=== PATIENT | female | born 1935 | race Two or more races ===

== ENCOUNTER 2020-07-25 12:18 | Inpatient (IN) | payer OTHER ==
[~2020-07-25] VITALS: Ht 162.6 cm; Wt 86.2 kg
[2020-07-25] MEDS ORDERED: COZAAR50 MG (12:35)
[2020-07-25] MEDS ORDERED: SYNTHROID100 MCG (12:35)
--- NOTE | 2020-07-25 12:40 | NUR ---
PACIENTE ALERTA Y ORIENTADA EN LAS RAULITO ESFERAS. PACIENTE PRESENTA PITTING EDEMA +3 EN AMBAS EXTREMIDADES INFERIORES. SE COLOCA A PACIENTE EN AREA DE OBSERVACION PARA SER ATENDIDA POR MEDICO EN TURNO.
--- NOTE | 2020-07-25 13:32 | NUR ---
. RENTA EVALUA PTE. RN KELSEY ORIENTA PTE SOBRE MEDICAMENTOS Y AMBIKA DE MUESTRAS REALIZADAS. SE COORDINA ESTUDIO PENDIENTE CON SERVICIO DE MAYE X. SE CANALIZA PTE Y SE MANTIENE PTE BAJO OBSERVACION.
--- NOTE | 2020-07-25 15:18 | NUR ---
SE RECIBE PACIENTE DE TURNO ANTERIOR, ALERTA Y ORIENTADA EN TIEMPO LUGAR Y PERSONA. CON VENOPUNCION PATENTE, RJ DE ERITEMA Y EDEMA, RECIBEIDNO AL MOMENTO TERAPIA DE IVF'S 0.9 NSS 1000ML A 100ML. PENDIENTE LECTURA DE XRAYS Y RESULTADOS DE LABORATORIOS. SE MANTIENE PTE EN OBSERVACION POR CAMBIOS EN SMITH CONDICION. PTE RJ DE DOLOR AL MOMENTO.
--- NOTE | 2020-07-25 17:49 | NUR ---
MRS. TOBIN ADMINISTRA MEDICAMENTO ORDENADO. SE ORIENTA A PACIENTE SOBRE INDICACION DEL MISMO.
[2020-07-26] MEDS ORDERED: ALPRAZOLAM0.25 MG (11:57)
[2020-07-26] MEDS ORDERED: FUROSEMIDE20 MG (11:57)
== END 2020-07-28 03:00 | disposition left against medical advice (07) | DRG 690 ==
LOC: ER 12:18 → SEC-K 19:46 → MEDI 07-26 06:02
PROVIDERS: ADMIT Internal Medicine; ATTEND Internal Medicine
PROC: 3E0F7SF Introduction of Other Gas into Respiratory Tract, Via Natural or Artificial Opening (ICD-10-PCS; principal; 2020-07-25)
PROC: 4A033R1 Measurement of Arterial Saturation, Peripheral, Percutaneous Approach (ICD-10-PCS; 2020-07-25)
DX: N39.0 Urinary tract infection, site not specified (principal); L03.116 Cellulitis of left lower limb; B96.20 Unspecified Escherichia coli [E. coli] as the cause of diseases classified elsewhere; D72.828 Other elevated white blood cell count; I10 Essential (primary) hypertension; I50.9 Heart failure, unspecified; E11.9 Type 2 diabetes mellitus without complications; E03.8 Other specified hypothyroidism; E66.01 Morbid (severe) obesity due to excess calories; R53.1 Weakness; E88.09 Other disorders of plasma-protein metabolism, not elsewhere classified; Z20.822 Contact with and (suspected) exposure to COVID-19

== ENCOUNTER 2022-12-05 22:41 | Emergency (ER) | payer OTHER ==
[~2022-12-05] VITALS: Ht 165.1 cm; Wt 113.4 kg
[~2022-12-05 22:41] MED LIST: ALPRAZOLAM0.25 MG; COZAAR50 MG; FUROSEMIDE20 MG; SYNTHROID100 MCG
[2022-12-06 01:22] LABS: HEMOGLOBIN 14.1 g/dL (12.0-15.00); MEAN CELL VOLUME 93.5 fL (80.00-100.00); MEAN CORPUSCULAR HEMOGLOBIN 30.6 pg (27.00-32.0); MEAN CORPUSCULAR HGB CONC 32.8 g/dl (32.0-36.0); PLATELET COUNT 263 K/uL (150-450); RED CELL DISTRIBUTION WIDTH 13.9 % (11.5-14.5)
[2022-12-06 01:43] LABS: INR 1.03; PARTIAL THROMBOPLASTIN TIME 25.9 SECONDS (22.0-34.0); PROTHROMBIN TIME 10.8 SECONDS (9.0-11.5)
[2022-12-06 01:47] LABS: BILIRUBIN TOTAL 0.23 mg/dL (0.3-1.2); CREATININE SERUM 0.75 mg/dL (0.55-1.02); GFR 73.27; GLOBULINA 4.4 G/DL (2.4-3.5); POTASSIUM 4.07 mEq/L (3.5-5.1); TOTAL PROTEIN 7.4 gm/dL (6.4-8.2)
[2022-12-06 01:54] LABS: URINE APPEARANCE Clear; URINE BILIRRUBIN Negative (NEGATIVE); URINE BLOOD Trace; URINE COLOR Yellow; URINE GLUCOSE Negative (NEGATIVE); URINE LEUKOCYTE Negative; URINE NITRATE Negative; URINE PROTEIN Negative (NEGATIVE); URINE UROBILINOGEN 0.2 E.U./dl
[2022-12-06 02:02] LABS: URINE BACTERIA 66.7 uL (0.0-1933); URINE EPITHELIAL CELLS 7.5 uL (0.0-38.8); URINE RBC 31.8 uL (0.0-20.8); URINE WBC 4.4 uL (0.0-23.2)
== END 2022-12-06 13:27 | disposition home or self-care (01) ==
LOC: ER 22:41
PROVIDERS: General Practice
DX: M79.89 Other specified soft tissue disorders (principal); I10 Essential (primary) hypertension; E03.8 Other specified hypothyroidism; I87.2 Venous insufficiency (chronic) (peripheral); E03.9 Hypothyroidism, unspecified

== ENCOUNTER 2023-06-04 02:05 | Emergency (ER) | payer OTHER ==
[~2023-06-04] VITALS: Ht 165.1 cm; Wt 90.7 kg
--- NOTE | 2023-06-04 02:23 | NUR ---
PACIENTE FEMENINA ALERTA Y ORIENTADA X3, VERBALIZA QUE SIENTE PALPITACIONES, EL PULSO ACELERADO Y PROBLEMAS AL DORMIR.
[2023-06-04] MEDS ORDERED: ASPIRIN 81 MG TAB.CHEW PO STA (03:03)
[2023-06-04] MEDS ORDERED: CLOPIDOGREL BISULFATE 75 MG TABLET PO STA (03:03)
[2023-06-04] MEDS ORDERED: NITROGLYCERIN 0.4 MG/HR PATCH.TD24 TD STA (03:04)
--- NOTE | 2023-06-04 03:48 | NUR ---
PTE REUSA ACOSTARSE EN MAGUI, PREFIERE QUEDARSE EN SILLA DE YING.
--- NOTE | 2023-06-04 03:51 | NUR ---
SE LE ORIENTA A PACIENTE SOBRE LAS ORDENES MEDICAS, REFIERE ENTENDER LAS MISMAS. SE CONECTA A MONITOR CARDIACO Y OXIMETRIA DE PULSO. SE CANALAIZA Y SE LE COLOCA H/L, SE LE ENE LAS MUETRAS, SE LE ADMINISTRAN LOS MEDICAMENTOS JENNIFER LA ORDEN MEDICA.
[2023-06-04 04:08] LABS: HEMATOCRIT 36.5 % (36.0-45.00); MEAN CELL VOLUME 88.7 fL (80.00-100.00); MEAN CORPUSCULAR HEMOGLOBIN 29.1 pg (27.00-32.0); MEAN CORPUSCULAR HGB CONC 32.8 g/dl (32.0-36.0); PLATELET COUNT 345 K/uL (150-450); RED BLOOD COUNT 4.11 M/uL (4.00-6.00); RED CELL DISTRIBUTION WIDTH 14.6 % (11.5-14.5)
[2023-06-04 04:20] LABS: PARTIAL THROMBOPLASTIN TIME 25.6 SECONDS (22.0-34.0); PROTHROMBIN TIME 10.5 SECONDS (9.0-11.5)
[2023-06-04 04:27] LABS: ALBUMIN 2.8 gm/dL (3.4-5.0); BILIRUBIN TOTAL 0.22 mg/dL (0.3-1.2); CALCIUM 8.9 mg/dL (8.5-10.1); CREATININE SERUM 1.06 mg/dL (0.55-1.02); GFR 49.04; GLOBULINA 4.5 G/DL (2.4-3.5); POTASSIUM 4.66 mEq/L (3.5-5.1); TOTAL PROTEIN 7.3 gm/dL (6.4-8.2)
[2023-06-04 05:47] LABS: ABG PH 7.444 (7.35-7.45); ABG PO2 68.7 mmHg (80-100); ABG pCO2 43.7 mmHg (35-45); SaO2 93.8 %
[2023-06-04 05:48] LABS: BASE EXCESS 2.3 mmol/l; BICARBONATE 27.3 mmol/l (23-25); Tco2 28.7 mmol/l; allen test SATISFACTORY; o2 21 %; puncture site RADIAL RIGHT
--- NOTE | 2023-06-04 07:36 | NUR ---
SE RECIBE PTE FEMENINA DE 88 ANOS ALERTA Y ORIENTADA X3 QUIEN AL MOMENOT NO REFIERE SUSU PTE SE OBSERBA EN SILLA DE YING CONECTADA A MONITOR CARDIACO. PTE REHUSA DESCANSO EN CAMA. SE ENE MUESTRAS PENDIENTE DE 0700 PTE PEND A CONSULTA CON DR LARA.
[2023-06-04] MEDS ORDERED: NITROGLYCERIN IN 5 % DEXTROSE 50 MG/250 ML BOTTLE IV SCH (08:00)
[2023-06-04] MEDS ORDERED: NITROGLYCERIN IN 5 % DEXTROSE 250 ML IV SCH (09:00)
[2023-06-04] MEDS ORDERED: ENOXAPARIN SODIUM 40 MG/0.4 ML SYRINGE SUBCUTANEO SCH (09:00)
[2023-06-04] MEDS ORDERED: METOPROLOL SUCCINATE 25 MG TAB.SR.24H PO SCH (09:00)
[2023-06-04] MEDS ORDERED: LOSARTAN POTASSIUM 50 MG TABLET PO SCH (09:00)
[2023-06-04] MEDS ORDERED: FUROsemide 40 MG/4 ML VIAL IV SCH (09:00)
[2023-06-04] MEDS ORDERED: DILTIAZEM HCL 25 MG/5 ML VIAL IV STA (10:00)
[2023-06-04] MEDS ORDERED: DILTIAZEM HCL 125 MG in 0.9 % SODIUM CHLORIDE 100 ML IV SCH (10:00)
[2023-06-04] MEDS ORDERED: ENALAPRILAT DIHYDRATE 1.25 MG/ML VIAL IV PRN (16:45)
[2023-06-04] MEDS ORDERED: LACTULOSE 20 G/30 ML BLIST.PACK PO ONE (18:30)
[2023-06-04] MEDS ORDERED: MINERAL OIL 30 ML BLIST.PACK PO ONE (18:30)
[2023-06-04] MEDS ORDERED: MAGNESIUM HYDROXIDE 30 ML BLIST.PACK PO ONE (18:30)
[2023-06-05] MEDS ORDERED: LOSARTAN POTASSIUM 100 MG TABLET PO SCH (09:00)
== END 2023-06-04 23:45 | disposition left against medical advice (07) ==
LOC: ER 02:05 → SEC-K 08:22 → MEDI 08:22 → SEC-K 08:38 → MEDI 10:57 → SEC-K 10:57 → MEDI 23:45 → ER 23:45
DX: R00.2 Palpitations (principal); I10 Essential (primary) hypertension; E03.9 Hypothyroidism, unspecified; Z20.822 Contact with and (suspected) exposure to COVID-19

== ENCOUNTER 2023-11-13 13:18 | Inpatient (IN) | payer OTHER ==
[~2023-11-13] VITALS: Ht 170.2 cm; Wt 113.4 kg
[2023-11-13] MEDS ORDERED: LEVOTHYROXINE200 MCG (13:30)
[2023-11-13 15:02] LABS: HEMATOCRIT 33.5 % (36.0-45.00); HEMOGLOBIN 10.9 g/dL (12.0-15.00); MEAN CELL VOLUME 84.2 fL (80.00-100.00); MEAN CORPUSCULAR HEMOGLOBIN 27.5 pg (27.00-32.0); MEAN CORPUSCULAR HGB CONC 32.6 g/dl (32.0-36.0); PLATELET COUNT 317 K/uL (150-450); RED BLOOD COUNT 3.98 M/uL (4.00-6.00); RED CELL DISTRIBUTION WIDTH 15.8 % (11.5-14.5)
[2023-11-13 15:29] LABS: CALCIUM 8.5 mg/dL (8.5-10.1); CREATININE SERUM 0.72 mg/dL (0.55-1.02); GFR 76.62; POTASSIUM 4.53 mEq/L (3.5-5.1)
[2023-11-13] MEDS ORDERED: NITROGLYCERIN IN 5 % DEXTROSE 50 MG/250 ML BOTTLE IV STA (15:37)
[2023-11-13 15:40] LABS: D DIMER 2.42 MG/L; PARTIAL THROMBOPLASTIN TIME 22.8 SECONDS (22.0-34.0)
[2023-11-13 15:42] LABS: INR 1.05; PROTHROMBIN TIME 11.4 SECONDS (9.0-11.5)
[2023-11-13] MEDS ORDERED: KETOROLAC TROMETHAMINE 60 MG VIAL IM STA (15:52)
[2023-11-13] MEDS ORDERED: NITROGLYCERIN IN 5 % DEXTROSE 50 MG/250 ML BOTTLE IV ONE (16:01)
[2023-11-13] MEDS ORDERED: RINGERS SOLUTION,LACTATED 1,000 ML IV STA (16:04)
[2023-11-13] MEDS ORDERED: LORazepam 2 MG/ML VIAL IV STA (16:05)
[2023-11-13] MEDS ORDERED: LORazepam 2 MG/ML VIAL ONE (16:14)
[2023-11-13] MEDS ORDERED: KETOROLAC TROMETHAMINE 60 MG VIAL IM ONE (16:31)
[2023-11-13 17:20] VITALS: BP 77/58; O2SAT 90
[2023-11-13] MEDS ORDERED: IPRATROPIUM BROMIDE 0.5 MG/2.5 ML AMPUL.NEB IH SCH (21:38)
[2023-11-13] MEDS ORDERED: FUROsemide 20 MG/2 ML VIAL IV SCH (21:42)
[2023-11-13] MEDS ORDERED: ACETAMINOPHEN 500 MG GEL..CAP PO PRN (21:45)
[2023-11-13] MEDS ORDERED: ENOXAPARIN SODIUM 100 MG/ML SYRINGE SUBCUTANEO SCH (21:46)
[2023-11-13] MEDS ORDERED: METOPROLOL TARTRATE 25 MG TABLET PO ONE (22:45)
[2023-11-13] MEDS ORDERED: NITROGLYCERIN IN 5 % DEXTROSE 250 ML IV SCH (22:45)
[2023-11-14 00:17] LABS: INR 1.07; PARTIAL THROMBOPLASTIN TIME 23.1 SECONDS (22.0-34.0); PROTHROMBIN TIME 11.6 SECONDS (9.0-11.5)
[2023-11-14] MEDS ORDERED: LEVOTHYROXINE SODIUM 200 MCG TABLET PO SCH (06:00)
[2023-11-14] MEDS ORDERED: NITROGLYCERIN IN 5 % DEXTROSE 250 ML IV SCH (06:45)
[2023-11-14] MEDS ORDERED: FAMOTIDINE/PF 20 MG in 0.9 % SODIUM CHLORIDE 8 ML IV PUSH SCH (09:00)
[2023-11-14] MEDS ORDERED: ATORVASTATIN CALCIUM 40 MG TABLET PO SCH (09:00)
== END 2023-11-14 02:16 | disposition left against medical advice (07) | DRG 310 ==
LOC: ER 13:19 → ICU-2 21:46
PROVIDERS: General Practice; ADMIT Internal Medicine; ATTEND Internal Medicine
DX: R00.0 Tachycardia, unspecified (principal); I50.9 Heart failure, unspecified; Z53.29 Procedure and treatment not carried out because of patient's decision for other reasons; Z20.822 Contact with and (suspected) exposure to COVID-19

== ENCOUNTER 2023-11-15 19:54 | Inpatient (IN) | payer OTHER ==
[~2023-11-15] VITALS: Ht 162.6 cm; Wt 90.7 kg
[~2023-11-15 19:54] MED LIST changes: +LEVOTHYROXINE200 MCG
[2023-11-15] MEDS ORDERED: ENOXAPARIN SODIUM 80 MG/0.8 ML SYRINGE SUBCUTANEO SCH (21:29)
[2023-11-15] MEDS ORDERED: DILTIAZEM HCL 25 MG/5 ML VIAL IV ONE ×2 (21:30→21:57)
[2023-11-15] MEDS ORDERED: DILTIAZEM HCL 125 MG in 0.9 % SODIUM CHLORIDE 125 ML IV SCH (21:30)
[2023-11-15] MEDS ORDERED: FAMOTIDINE/PF 20 MG in 0.9 % SODIUM CHLORIDE 100 ML IV SCH (21:52)
[2023-11-15] MEDS ORDERED: ATORVASTATIN CALCIUM 40 MG TABLET PO SCH (21:53)
[2023-11-15] MEDS ORDERED: ENOXAPARIN SODIUM 80 MG/0.8 ML SYRINGE SUBCUTANEO ONE (21:56)
[2023-11-15] MEDS ORDERED: FAMOTIDINE/PF 20 MG/2 ML VIAL ONE (22:14)
[2023-11-15 23:29] LABS: HEMATOCRIT 34.3 % (36.0-45.00); HEMOGLOBIN 11.1 g/dL (12.0-15.00); MEAN CELL VOLUME 84.8 fL (80.00-100.00); MEAN CORPUSCULAR HEMOGLOBIN 27.4 pg (27.00-32.0); MEAN CORPUSCULAR HGB CONC 32.3 g/dl (32.0-36.0); PLATELET COUNT 339 K/uL (150-450); RED BLOOD COUNT 4.04 M/uL (4.00-6.00); RED CELL DISTRIBUTION WIDTH 16.6 % (11.5-14.5)
[2023-11-15 23:49] LABS: INR 1.05; PARTIAL THROMBOPLASTIN TIME 28.3 SECONDS (22.0-34.0); PROTHROMBIN TIME 11.4 SECONDS (9.0-11.5)
[2023-11-15 23:59] LABS: ALBUMIN 2.5 gm/dL (3.4-5.0); BILIRUBIN TOTAL 0.49 mg/dL (0.3-1.2); CALCIUM 8.4 mg/dL (8.5-10.1); CREATININE SERUM 0.84 mg/dL (0.55-1.02); GFR 64.13; GLOBULINA 4.3 G/DL (2.4-3.5); POTASSIUM 4.47 mEq/L (3.5-5.1); TOTAL PROTEIN 6.8 gm/dL (6.4-8.2); TSH 0.405 uIU/mL (0.358-3.74)
[2023-11-16] VITALS (8 sets, daily range): BP systolic 98–160; BP diastolic 56–88; O2SAT 90–96
[2023-11-16] MEDS ORDERED: LEVOTHYROXINE SODIUM 200 MCG TABLET PO SCH (06:00)
[2023-11-16] MEDS ORDERED: FUROsemide 20 MG/2 ML VIAL IV SCH (13:00)
[2023-11-16] MEDS ORDERED: ACETAMINOPHEN 500 MG GEL..CAP PO PRN (13:00)
[2023-11-16 14:29] LABS: PH,URINE 5.5 (5.0-8.0); URINE APPEARANCE Clear; URINE BILIRRUBIN Negative (NEGATIVE); URINE BLOOD Negative; URINE COLOR Yellow; URINE GLUCOSE Negative (NEGATIVE); URINE KETONE Negative (NEGATIVE); URINE LEUKOCYTE Negative; URINE NITRATE Negative; URINE PROTEIN Negative (NEGATIVE)
[2023-11-16 14:33] LABS: URINE BACTERIA 157.4 uL (0.0-1933); URINE EPITHELIAL CELLS 13.5 uL (0.0-38.8); URINE RBC 7.9 uL (0.0-20.8); URINE WBC 4.4 uL (0.0-23.2)
[2023-11-16 14:37] LABS: URINE CAST 1.06 uL (0.0-1.40)
[2023-11-16] MEDS ORDERED: APIXABAN 5 MG TABLET PO SCH (17:00)
[2023-11-16] MEDS ORDERED: METOPROLOL TARTRATE 25 MG TABLET PO SCH (17:00)
[2023-11-17] MEDS ORDERED: LEVOTHYROXINE SODIUM 175 MCG TABLET PO SCH (06:00)
== END 2023-11-16 20:34 | disposition left against medical advice (07) | DRG 292 ==
LOC: ER 19:55 → MEDJ 22:19
PROVIDERS: General Practice; ADMIT Internal Medicine; ATTEND Internal Medicine
PROC: 4A12X4Z Monitoring of Cardiac Electrical Activity, External Approach (ICD-10-PCS; principal; 2023-11-16)
PROC: B246ZZZ Ultrasonography of Right and Left Heart (ICD-10-PCS; 2023-11-16)
DX: I50.9 Heart failure, unspecified (principal); N17.9 Acute kidney failure, unspecified; Z20.822 Contact with and (suspected) exposure to COVID-19; Z53.29 Procedure and treatment not carried out because of patient's decision for other reasons; R00.0 Tachycardia, unspecified

== ENCOUNTER 2023-11-17 00:48 | Emergency (ER) | payer OTHER ==
[~2023-11-17] VITALS: Ht 162.6 cm; Wt 122.5 kg
[2023-11-17] MEDS ORDERED: DILTIAZEM HCL 25 MG/5 ML VIAL IV ONE ×3 (01:36→09:10)
[2023-11-17] MEDS ORDERED: DILTIAZEM HCL 125 MG in 0.9 % SODIUM CHLORIDE 125 ML IV SCH (01:45)
[2023-11-17 02:29] LABS: ALBUMIN 2.5 gm/dL (3.4-5.0); BILIRUBIN TOTAL 0.66 mg/dL (0.3-1.2); CREATININE SERUM 1.1 mg/dL (0.55-1.02); GFR 46.98; GLOBULINA 4.3 G/DL (2.4-3.5); HEMATOCRIT 33.6 % (36.0-45.00); MEAN CORPUSCULAR HEMOGLOBIN 27.6 pg (27.00-32.0); MEAN CORPUSCULAR HGB CONC 32.8 g/dl (32.0-36.0); PLATELET COUNT 412 K/uL (150-450); POTASSIUM 4.67 mEq/L (3.5-5.1); RED CELL DISTRIBUTION WIDTH 16.4 % (11.5-14.5); TOTAL PROTEIN 6.8 gm/dL (6.4-8.2)
== END 2023-11-17 12:08 ==
LOC: ER 00:49
PROVIDERS: General Practice
DX: I48.91 Unspecified atrial fibrillation (principal); R06.02 Shortness of breath; I10 Essential (primary) hypertension; E03.8 Other specified hypothyroidism
CPT/HCPCS: 36415; 93005 ×2; 93041; 96365; 99282; J3490 ×3

== ENCOUNTER 2023-12-01 02:14 | Inpatient (IN) | payer OTHER ==
[~2023-12-01] VITALS: Ht 154.9 cm; Wt 113.4 kg
[2023-12-01] MEDS ORDERED: CEPHALEXIN500 MG PO (02:43)
[2023-12-01] MEDS ORDERED: DILTIAZEM ER120 M2 PO (02:43)
[2023-12-01] MEDS ORDERED: DILTIAZEM HCL 25 MG/5 ML VIAL IV ONE (03:30)
[2023-12-01 03:38] LABS: HEMATOCRIT 30.7 % (36.0-45.00); MEAN CORPUSCULAR HEMOGLOBIN 26.6 pg (27.00-32.0); MEAN CORPUSCULAR HGB CONC 32.5 g/dl (32.0-36.0); PLATELET COUNT 435 K/uL (150-450); RED BLOOD COUNT 3.75 M/uL (4.00-6.00); RED CELL DISTRIBUTION WIDTH 16.3 % (11.5-14.5)
[2023-12-01 04:14] LABS: INR 1.1; PARTIAL THROMBOPLASTIN TIME 27.6 SECONDS (22.0-34.0); PROTHROMBIN TIME 11.9 SECONDS (9.0-11.5)
[2023-12-01] MEDS ORDERED: KETOROLAC TROMETHAMINE 30 MG VIAL IV ONE (04:15)
[2023-12-01] MEDS ORDERED: ONDANSETRON HCL 2 MG/ML VIAL IV ONE (04:15)
[2023-12-01 04:21] LABS: ALBUMIN 2.4 gm/dL (3.4-5.0); BILIRUBIN TOTAL 0.52 mg/dL (0.3-1.2); CALCIUM 8.5 mg/dL (8.5-10.1); CREATININE SERUM 0.9 mg/dL (0.55-1.02); GFR 59.23; GLOBULINA 4.4 G/DL (2.4-3.5); POTASSIUM 4.38 mEq/L (3.5-5.1); TOTAL PROTEIN 6.8 gm/dL (6.4-8.2)
[2023-12-01] MEDS ORDERED: NITROGLYCERIN 250 ML IV SCH (05:45)
[2023-12-01] MEDS ORDERED: FUROsemide 40 MG/4 ML VIAL IV ONE (05:45)
[2023-12-01] MEDS ORDERED: FAMOTIDINE/PF 20 MG in 0.9 % SODIUM CHLORIDE 8 ML IV PUSH STA (16:12)
[2023-12-01] MEDS ORDERED: FUROsemide 20 MG/2 ML VIAL IV SCH ×2 (16:43→17:00)
[2023-12-01] MEDS ORDERED: ONDANSETRON HCL 4 MG in 0.9 % SODIUM CHLORIDE 50 ML IV PRN (16:45)
[2023-12-01] MEDS ORDERED: APIXABAN 5 MG TABLET PO SCH (17:03)
[2023-12-01 19:15] LABS: INR 1.1; PARTIAL THROMBOPLASTIN TIME 28.5 SECONDS (22.0-34.0); PROTHROMBIN TIME 11.9 SECONDS (9.0-11.5)
[2023-12-01 19:20] LABS: CHOL HDL RATIO 3.7 (0-5.0)
[2023-12-01 21:54] VITALS: BP 145/92
[2023-12-02 02:48] VITALS: BP 156/91; O2SAT 95
[2023-12-02] MEDS ORDERED: LEVOTHYROXINE SODIUM 175 MCG TABLET PO SCH (06:00)
[2023-12-02 08:06] VITALS: BP 179/90
[2023-12-02] MEDS ORDERED: CARVEDILOL 3.125 MG TABLET PO NR (11:00)
[2023-12-02] MEDS ORDERED: LOSARTAN POTASSIUM 50 MG TABLET PO NR (13:00)
[2023-12-02 16:56] VITALS: BP 134/59
[2023-12-02] MEDS ORDERED: CARVEDILOL 3.125 MG TABLET PO SCH (17:00)
[2023-12-03 00:40] VITALS: BP 130/70; O2SAT 96
[2023-12-03] MEDS ORDERED: TRAMADOL HCL 50 MG TABLET PO PRN (02:00)
[2023-12-03 08:01] VITALS: BP 106/73
[2023-12-03] MEDS ORDERED: LOSARTAN POTASSIUM 50 MG TABLET PO SCH (09:00)
== END 2023-12-03 13:03 | disposition home or self-care (01) | DRG 293 ==
LOC: ER 02:15 → MEDI 16:55
PROVIDERS: General Practice; ADMIT Internal Medicine; ATTEND Internal Medicine
PROC: 4A12X4Z Monitoring of Cardiac Electrical Activity, External Approach (ICD-10-PCS; principal; 2023-12-01)
DX: I11.0 Hypertensive heart disease with heart failure (principal); I50.9 Heart failure, unspecified; I25.10 Atherosclerotic heart disease of native coronary artery without angina pectoris; I48.91 Unspecified atrial fibrillation